=== PATIENT | male | born 1980 | race African-American/Black ===

== ENCOUNTER 2019-04-16 14:58 | Emergency (ER) | payer OTHER ==
[~2019-04-16] VITALS: Ht 195.6 cm; Wt 89.0 kg
[2019-04-16 15:24] VITALS: BP 148/87
--- NOTE | 2019-04-16 15:32 | PHYS DOC ---
Past History Past Medical History: Hypertension Smoking: Non-smoker Adult General Chief Complaint Chief Complaint: HEADACHE HPI HPI Patient is a pleasant 39-year-old male who presents to the emergency department for evaluation. He states for the past 4-5 days, he has been monitoring his blood pressure, which has been running in the 140s over 90s range. He has not had any vision changes, numbness, or weakness. He reports having had a mild headache, waxing and waning over the past 4-5 days, particularly upon awakening in the morning. He states he takes [id number] analgesics, with some mild improvement in his symptoms. He states he has not had any abrupt onset or severe headaches, or any other associated symptoms. He has not had any chest pain or s hortness of breath, nausea, or vomiting. There are no alleviating or exacerbating factors to his symptoms otherwise. Review of Systems Review of Systems Constitutional: Denies fever or chills [] Eyes: Denies change in visual acuity, redness, or eye pain [] HENT: Denies nasal congestion or sore throat [] Respiratory: Denies cough or shortness of breath [] Cardiovascular: The patient denies any shortness of breath, chest pain, palpitations, or orthopnea [] GI: Denies abdominal pain, nausea, vomiting, bloody stools or diarrhea [] : Denies dysuria or hematuria [] Musculoskeletal: Denies back pain or joint pain [] Integument: Denies rash or skin lesions [] Neurologic: Denies focal weakness or sensory changes [] Endocrine: Denies polyuria or polydipsia [] All other systems were reviewed and found to be within normal limits, except as documented in this note. Allergies Allergies Allergies Coded Allergies Type Severity Reaction Last Updated Verified Penicillins Allergy Unknown 04/16/19 Yes Physical Exam Physical Exam PHYSICAL EXAM: CONSTITUTIONAL: Well developed, well nourished HEAD: normocephalic, atraumatic EENT: PERRL, EOMI. Conjunctivae normal color, sclerae non-icteric; moist mucous membranes. NECK: Supple, non-tender; no meningismus. LUNGS: Lungs CTA, breathing even and unlabored. Normal air movement. HEART: Regular rate and rhythm, no murmur CHEST: No deformity; non-tender ABDOMEN: The abdomen is soft, and non-tender, no masses or bruits. EXTREM: Normal ROM; no deformity, no calf tenderness. Normal pulses palpable in all extremities. There is no pedal edema. SKIN: No rash; no diaphoresis NEURO: Alert; normal speech and cognition; CN's grossly intact; strength grossly intact without focal deficit. BACK: No CVA TTP. EKG EKG [] Radiology/Procedures Radiology/Procedures PROCEDURE: CT HEAD WO CONTRAST CT HEAD WO CONTRAST Indication: Headache. Exposure: One or more of the following individualized dose reduction techniques were utilized for this examination: 1. Automated exposure control 2. Adjustment of the mA and/or kV according to patient size 3. Use of iterative reconstruction technique. Technique: Standard imaging without intravenous contrast. No evidence of acute infarct cranial hemorrhage, mass effect, midline shift or abnormal extra-axial fluid collection. Jasso-white matter distinction is intact. Ventricles and sulci are symmetric. The partially visualized orbits are unremarkable. No significant scalp swelling. The partially visualized sinuses are clear. No evidence of acute skull abnormality. IMPRESSION: No evidence of acute intracranial hemorrhage.[] Course & Med Decision Making Course & Med Decision Making Pertinent Imaging studies reviewed. (See chart for details) []4:00 PM: The patient's condition remains stable. I discussed test results in detail with the patient.I discussed doing a lumbar puncture with the patient. We discussed the limitations of CT in definitively ruling out subarachnoid hemorrhage, or ruling out meningitis, I discussed the potential life- threatening nature of these diagnoses. The patient expressed verbal understa nding of the risks involved in potentially missing these diagnoses. After considering the risks/benefits of lumbar puncture, and answering all questions about the procedure, the patient declined to undergo a lumbar puncture. The patient was mentally competent, and all questions were addressed. I stressed the need to return to the emergency department for worsening symptoms, or if the patient is willing to undergo further evaluation. The patient expressed verbal understanding. I discussed importance of close outpatient follow-up, and return precautions in detail. I discussed importance of keeping a blood pressure log, as well as close PCP follow-up for further blood pressure management. Dragon Disclaimer Dragon Disclaimer This electronic medical record was generated, in whole or in part, using a voice recognition dictation system. Departure Departure: Impression: Primary Impression: Headache Additional Impression: Hypertension Disposition: HOME, SELF-CARE Condition: STABLE Referrals: PCP,UNKNOWN (PCP) Patient Instructions: General Headache Without Cause, Hypertension Problem Qualifiers GREENGART,ÓSCAR MD Apr 16, 2019 15:32
--- NOTE | 2019-04-16 15:57 | RAD ---
CT HEAD WO CONTRAST Indication: Headache. Exposure: One or more of the following individualized dose reduction techniques were utilized for this examination: 1. Automated exposure control 2. Adjustment of the mA and/or kV according to patient size 3. Use of iterative reconstruction technique. Technique: Standard imaging without intravenous contrast. No evidence of acute infarct cranial hemorrhage, mass effect, midline shift or abnormal extra-axial fluid collection. Jasso-white matter distinction is intact. Ventricles and sulci are symmetric. The partially visualized orbits are unremarkable. No significant scalp swelling. The partially visualized sinuses are clear. No evidence of acute skull abnormality. IMPRESSION: No evidence of acute intracranial hemorrhage. Electronically signed by: Kulwinder Aragon MD (04/16/2019 3:54 PM) [id number]
--- NOTE | 2019-04-16 17:10 | RAD ---
Exam: CT head INDICATION: Headache TECHNIQUE: Sequential axial images through the head were obtained without the administration of IV contrast. Comparisons: None FINDINGS: No focal parenchymal lesion or hemorrhage is identified. There is no midline shift or sulcal effacement. No acute vascular territory infarction is identified. Jasso-white distinction is preserved. The ventricular system is within normal limits without compression hydrocephalus. The basal cisterns are well maintained. The visualized portions of the paranasal sinuses and mastoid air cells are well-pneumatized. No acute fractures. IMPRESSION: No acute intracranial abnormality. Exposure: One or more of the following in the visualized dose reduction techniques were utilized for this examination: 1. Automated exposure control 2. Adjustment of the MA and/or KV according to patient size Use of iterative of reconstructive technique Electronically signed by: Jorje Whiting MD (04/16/2019 5:06 PM) [id number]
== END 2019-04-16 16:25 | disposition home or self-care (01) ==
LOC: ER 14:58
DX: R51 Headache (principal); I10 Essential (primary) hypertension; Z88.0 Allergy status to penicillin
CPT/HCPCS: 70450; 99285